=== PATIENT | male | born 1980 | race Caucasian/White ===

== ENCOUNTER 2017-08-18 08:17 | Emergency (ER) | payer OTHER ==
--- NOTE | 2017-08-18 09:25 | ED ---
Upper Extremity Pain - HPI Summary HPI Summary: 36-year-old male presents with edema and blisters to his fingertips. He states that on Friday he walk to work without gloves. He states that since then he has been having pain in his fingertips. He states there has been increased swelling or pain. He has been using warm soaks. He has been taking anything for pain. He states he is having EKG range of motion of his fingers. He works at a grocery store. He states he developed numbness and swelling on his fingertips today. He denies any spreading redness. He denies any fevers or chills. - History of Current Complaint Chief Complaint: EDExtremityUpper Stated Complaint: POSSIBLE FROSTBITE Time Seen by Provider: 08/18/17 08:46 - Allergies/Home Medications Allergies/Adverse Reactions: Allergies Allergy/AdvReac Type Severity Reaction Status Date / Time MS Ibuprofen [Ibuprofen] Allergy Intermediate Itching Verified 02/08/16 13:59 MS Penicillins [PCN] Allergy Intermediate Rash Verified 02/08/16 13:59 MS Sulfa Drugs [Sulfa Drugs] Allergy Intermediate Itching Verified 02/08/16 13: 59 MS Tramadol [Tramadol] Allergy Intermediate Abdominal Verified 02/08/16 13:59 Pain PMH/Surg Hx/FS Hx/Imm Hx Endocrine/Hematology History: Denies: Hx Anticoagulant Therapy Cardiovascular History: Denies: Hx Myocardial Infarction Musculoskeletal History: Reports: Hx Back Problems Neurological History: Reports: Hx Spinal Cord Injury - "C-3--C7" Psychiatric History: Reports: Hx Substance Abuse Denies: Hx Eating Disorder, Hx of Violent Episodes Against Others - Immunization History Date of Tetanus Vaccine: unknown Infectious Disease History: No Infectious Disease History: Denies: Traveled Outside the [place] in Last 30 Days - Family History Known Family History: Positive: None Family History: R & n/C - Social History Alcohol Use: Occasionally Hx Substance Use: Yes Substance Use Type: Reports: Heroin, Marijuana Substance Use Comment - Amount & Last Used: last used heroin 04/29, currently on medical marijuana-smokes daily Hx Tobacco Use: Yes Smoking Status (MU): Current Every Day Smoker Review of Systems Negative: Fever Negative: Chest Pain Negative: Shortness Of Breath Positive: Edema - bilateral fingers Positive: Other - blister fingers All Other Systems Reviewed And Are Negative: Yes Physical Exam Triage Information Reviewed: Yes Vital Signs On Initial Exam: Initial Vitals Temp Pulse Resp BP Pulse Ox 97.8 F 86 18 128/85 97 08/18/17 08:22 08/18/17 08:22 08/18/17 08:22 08/18/17 08:22 08/18/17 08:22 Vital Signs Reviewed: Yes Appearance: Positive: Well-Appearing Skin: Positive: Warm, Dry, Other - large white blisters to tips of fingers 2-5 on bilateral hands with no surrouding erythema Head/Face: Positive: Normal Head/Face Inspection Eyes: Positive: Normal, Conjunctiva Clear Respiratory/Lung Sounds: Positive: Clear to Auscultation, Breath Sounds Present Cardiovascular: Positive: Normal, RRR Musculoskeletal: Positive: Limited @ - finger due to swelling, Other - bilateral edema of fingers 2-5, capillary refill<2 secs, sensation grossly intact Neurological: Positive: Normal Psychiatric: Positive: Normal Diagnostics - Vital Signs Vital Signs Temp Pulse Resp BP Pulse Ox 08/18/17 08:22 97.8 F 86 18 128/85 97 - Laboratory Lab Statement: Any lab studies that have been ordered have been reviewed, and results considered in the medical decision making process. Course/Dx - Course Course Of Treatment: 36-year-old male presents with edema and blisters to his fingertips. He states that on Friday he walk to work without gloves. He states that since then he has been having pain in his fingertips. He states there has been increased swelling or pain. He has been using warm soaks. He has been taking anything for pain. He states he is having EKG range of motion of his fingers. He works at a grocery store. He states he developed numbness and swelling on his fingertips today. He denies any spreading redness. He denies any fevers or chills. On exam has edema and bilateral fingers to the fingers. Has blisters to the distal phalanxes 2-5. No surrounding erythema. Limited range of motion due to edema. No signs of necrosis. Really a less than 2 second. Will treat with warm soaks and dry dressing. will give referral to orthopedic if gets worse or develops narcotic tissue. Patient understands and agrees with plan. - Diagnoses Differential Diagnosis/HQI/PQRI: Positive: Other - bernal bite, cellulitis Provider Diagnoses: 2nd degree frostbite of fingers Discharge - Discharge Plan Condition: Good Disposition: HOME Patient Education Materials: Frostbite (ED) Forms: *Work Release Referrals: Km Quintana MD [Medical Doctor] - Additional Instructions: Do warm soaks of area Elevate arms Take ibuprofen ever 6 hours Can apply aloe to area and nonstick dry dressing Follow up with ortho if tissue becomes necrotic Return to ED if develop any new or worsening symptoms
[2017-08-18 09:33] VITALS: BP 134/72
== END 2017-08-18 09:30 | disposition home or self-care (01) ==
LOC: ED 08:17
DX: T33.539A Superficial frostbite of unspecified finger(s), initial encounter (principal); R60.9 Edema, unspecified; F17.210 Nicotine dependence, cigarettes, uncomplicated; X31.XXXA Exposure to excessive natural cold, initial encounter; Y92.89 Other specified places as the place of occurrence of the external cause
CPT/HCPCS: 99281